=== PATIENT | female | born 1985 | race Caucasian/White ===

== ENCOUNTER 2016-04-15 19:24 | Emergency (ER) | payer BC, OTHER ==
[~2016-04-15 19:24] MED LIST: ALBUTEROL HFA60 DOSE IN; ALBUTEROL SUL0.083 % IN; FLOVENT HFA110 MCG IN; OMEPRAZOLE40 MG PO; PREDNISONE10 MG PO; PREDNISONE5 MG PO; SEREVENT DISKU50 MCG INH; [UNRECOGNIZED DRUG - OTHER] PO
--- NOTE | 2016-04-15 21:31 | ED ORDER SUMMARY ---
..... Patient: HARLAN HOLDER OrderSheet [facility] VisitID: [id number] [address] [place] [address] 31y, F Registration Date/Time: 04/15/2016 ORDER SHEET Weight: 63.5 kg (stated) Allergies: Clarithromycin, Erythromycin, Tramadol GENERAL ORDERS: Chest 2V Urgent (20:06 04/15/2016 HBivens A.R.N.P.) (Ack 20:18 CHategekimana) (20:19 RFay) MEDICATION ORDERS: Ceftriaxone IM 1 gm (NOW) (21:29 04/15/2016 HBivens A.R.N.P.) (21:56 EInderbitzen R.N.) Naproxen PO 500 mg (NOW) (22:03 04/15/2016 EInderbitzen R.N. verbal order read back to HBivens A.R.N.P.) (22:04 EInderbitzen R.N.) IV FLUIDS: ORDER SHEET NOTES: [Electronically signed by Kimmy Joseph R.N. (22:20 04/15/2016)] [Electronically signed by Fior Dove A.R.N.P. (22:40 04/15/2016)] [Electronically locked/signed by Kimmy Joseph R.N. (22:20 04/15/2016)]
--- NOTE | 2016-04-15 21:31 | ED ORDER SUMMARY ---
..... Patient: HARLAN HOLDER OrderSheet [facility] VisitID: [id number] [address] [place] [address] 31y, F Registration Date/Time: 04/15/2016 ORDER SHEET Weight: 63.5 kg (stated) Allergies: Clarithromycin, Erythromycin, Tramadol GENERAL ORDERS: Chest 2V Urgent (20:06 04/15/2016 HBivens A.R.N.P.) (Ack 20:18 CHategekimana) (20:19 RFay) MEDICATION ORDERS: Ceftriaxone IM 1 gm (NOW) (21:29 04/15/2016 HBivens A.R.N.P.) (21:56 EInderbitzen R.N.) Naproxen PO 500 mg (NOW) (22:03 04/15/2016 EInderbitzen R.N. verbal order read back to HBivens A.R.N.P.) (22:04 EInderbitzen R.N.) IV FLUIDS: ORDER SHEET NOTES: [Electronically signed by Kimmy Joseph R.N. (22:20 04/15/2016)] [Electronically signed by Fior Dove A.R.N.P. (22:40 04/15/2016)] [Electronically locked/signed by Kimmy Joseph R.N. (22:20 04/15/2016)]
--- NOTE | 2016-04-15 21:31 | ED NURSING NOTES ---
Clinical Report - Nurses [facility] [address] [place] [address] 04/15/2016 19:23 Patient: HARLAN HOLDER TRIAGE Triage time 19:54 Apr 15 2016. Acuity: LEVEL 4. Chief Complaint: (left rib pain). SEPSIS SCREEN: Sepsis Screen: negative. Negative (no infection suspected/documented). RANDALL COMA SCORE: Randall Coma Scale: 15- eyes open spontaneously (4); best verbal response- oriented x 4 (5); best motor response- obeys commands (6). --20:02 Willow Ellis R.N. 19:54 04/15/16. BP: 123/78. HR: 86. RR: 18. O2 saturation: 98%. Temp: 98.6 F. Pain level now: 10. --20:02 Willow Ellis R.N. Weight: 63.5 kg stated. Height/Length: 62 inches Per Patient. BMI: 25.6. --19:54 Willow Ellis R.N. Medications Serevent Diskus Inhalation. --19:57 Willow Ellis R.N. ProAir HFA Inhalation. --19:57 Willow Ellis R.N. Albuterol Sulfate Inhalation. --19:57 Willow Ellis R.N. Flovent Diskus Inhalation. --19:57 Willow Ellis R.N. Flonase Nasal. --19:57 Willow Ellis R.N. Singulair Oral. --19:57 Willow Ellis R.N. ZyrTEC Allergy Oral. --19:58 Willow Ellis R.N. Medication/allergy information source: the patient. --20:02 Inderbitzen, Willow, R.N. Allergies Clarithromycin. --19:56 Willow Ellis R.N. Erythromycin. --19:56 Willow Ellis R.N. Tramadol. --19:56 Willow Ellis R.N. History Arrived by private vehicle. Historian: patient. This started just prior to arrival. ( States has been coughing for a few weeks, tonight she felt severe pain following a sharp cough, Came here for treatment). No fever, weakness, cough, difficulty breathing or skin rash. Denies muscle aches. 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 PAST MEDICAL HX: Last normal menstrual period- Apr 05. 7. Para 7. Has not received seasonal influenza immunization. SOCIAL HX: Never smoker. Occasional alcohol use. No drug use. No infectious disease exposure. ABUSE ASSESSMENT: No report of abuse. SELF HARM ASSESSMENT: A self harm assessment was performed. The patient answered "no" to the question "Have you recently felt down, depressed, or hopeless?", "Have you noticed less interest or pleasure in doing things?", "Do you have thoughts of harming or killing yourself?", "Are you here because you tried to hurt yourself?", "Have you ever tried to hurt yourself before today?", "Have you recently had thoughts about harming or killing others?" and "Do you have any dangerous items in your possession?". FALL RISK ASSESSMENT: Fall risk assessment completed. No fall risk identified. NUTRITIONAL RISK ASSESSMENT: The nutritional risk assessment revealed no deficiencies. FUNCTIONAL ASSESSMENT: Functional assessment: no impairments noted. LEARNING NEEDS ASSESSMENT: The learning needs assessment revealed no barriers. SKIN INTEGRITY ASSESSMENT: Skin integrity risk assessment completed. No skin integrity risk identified. --20:02 Willow Ellis R.N. PROBLEMS: Asthma. Allergies. --19:59 Willow Ellis R.N. ADDITIONAL SURGERIES: Adenoidectomy. Myringotomy tubes. Tonsillectomy. Umbilical Hernia Repair. --19:59 Willow Ellis R.N. Interventions ID band on patient. --20:02 Willow Ellis R.N. NURSING PROGRESS NOTES 21:55 04/15/2016 Ceftriaxone IM 1 gm given. Given in the right gluteus dominik. Allergies verified and confirmed 5 rights. --21:56 Willow Ellis R.N. 21:55 04/15/2016 Naproxen PO Tablets 500 mg given. Allergies verified and confirmed 5 rights. --22:04 Willow Ellis R.N. 22:14 04/15/2016 Ceftriaxone IM Response: no adverse reaction. --22:19 Kimmy Joseph R.N. 22:19 04/15/2016 Naproxen PO Response: no adverse reaction. --22:20 Kimmy Joseph R.N. DISPOSITION / DISCHARGE Departure time: 2219 PM. Condition at departure: improved and stable. The goals identified in the patient's plan of care were met. No learning barriers present. Reviewed medication(s) side effects, precautions, dosing and course information. Prescription(s) given to the patient. Patient verbalized understanding. Written instructions provided in Austrian. The patient was discharged by the nurse practitioner. She was discharged home and unaccompanied at time of discharge. She left the Emergency Department ambulatory and via private vehicle. Patient driving. FALL RISK ASSESSMENT: Fall risk assessment completed. No fall risk identified. RANDALL COMA SCORE: Randall Coma Scale: 15- eyes open spontaneously (4); best verbal response- oriented x 4 (5); best motor response- obeys commands (6). --22:19 Kimmy Joseph R.N. 22:17 04/15/16. BP: 116/72 (regular adult cuff) taken on the left arm, via an automated monitor, while sitting. HR: 97. RR: 16 (regular and unlabored). O2 saturation: 97% on room air. Temp: 97.2 F (oral). Pain level now: 0/10. --22:19 Kimmy Joseph R.N. Locked/Released at 04/15/2016 22:20 by Kimmy Joseph R.N.
--- NOTE | 2016-04-15 21:31 | ED NURSING NOTES ---
Clinical Report - Nurses [facility] [address] [place] [address] 04/15/2016 19:23 Patient: HARLAN HOLDER TRIAGE Triage time 19:54 Apr 15 2016. Acuity: LEVEL 4. Chief Complaint: (left rib pain). SEPSIS SCREEN: Sepsis Screen: negative. Negative (no infection suspected/documented). RANDALL COMA SCORE: Randall Coma Scale: 15- eyes open spontaneously (4); best verbal response- oriented x 4 (5); best motor response- obeys commands (6). --20:02 Willow Ellis R.N. 19:54 04/15/16. BP: 123/78. HR: 86. RR: 18. O2 saturation: 98%. Temp: 98.6 F. Pain level now: 10. --20:02 Willow Ellis R.N. Weight: 63.5 kg stated. Height/Length: 62 inches Per Patient. BMI: 25.6. --19:54 Willow Ellis R.N. Medications Serevent Diskus Inhalation. --19:57 Willow Ellis R.N. ProAir HFA Inhalation. --19:57 Willow Ellis R.N. Albuterol Sulfate Inhalation. --19:57 Willow Ellis R.N. Flovent Diskus Inhalation. --19:57 Willow Ellis R.N. Flonase Nasal. --19:57 Willow Ellis R.N. Singulair Oral. --19:57 Willow Ellis R.N. ZyrTEC Allergy Oral. --19:58 Willow Ellis R.N. Medication/allergy information source: the patient. --20:02 Inderbitzen, Willow, R.N. Allergies Clarithromycin. --19:56 Willow Ellis R.N. Erythromycin. --19:56 Willow Ellis R.N. Tramadol. --19:56 Willow Ellis R.N. History Arrived by private vehicle. Historian: patient. This started just prior to arrival. ( States has been coughing for a few weeks, tonight she felt severe pain following a sharp cough, Came here for treatment). No fever, weakness, cough, difficulty breathing or skin rash. Denies muscle aches. 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 PAST MEDICAL HX: Last normal menstrual period- Apr 05. 7. Para 7. Has not received seasonal influenza immunization. SOCIAL HX: Never smoker. Occasional alcohol use. No drug use. No infectious disease exposure. ABUSE ASSESSMENT: No report of abuse. SELF HARM ASSESSMENT: A self harm assessment was performed. The patient answered "no" to the question "Have you recently felt down, depressed, or hopeless?", "Have you noticed less interest or pleasure in doing things?", "Do you have thoughts of harming or killing yourself?", "Are you here because you tried to hurt yourself?", "Have you ever tried to hurt yourself before today?", "Have you recently had thoughts about harming or killing others?" and "Do you have any dangerous items in your possession?". FALL RISK ASSESSMENT: Fall risk assessment completed. No fall risk identified. NUTRITIONAL RISK ASSESSMENT: The nutritional risk assessment revealed no deficiencies. FUNCTIONAL ASSESSMENT: Functional assessment: no impairments noted. LEARNING NEEDS ASSESSMENT: The learning needs assessment revealed no barriers. SKIN INTEGRITY ASSESSMENT: Skin integrity risk assessment completed. No skin integrity risk identified. --20:02 Willow Ellis R.N. PROBLEMS: Asthma. Allergies. --19:59 Willow Ellis R.N. ADDITIONAL SURGERIES: Adenoidectomy. Myringotomy tubes. Tonsillectomy. Umbilical Hernia Repair. --19:59 Willow Ellis R.N. Interventions ID band on patient. --20:02 Willow Ellis R.N. NURSING PROGRESS NOTES 21:55 04/15/2016 Ceftriaxone IM 1 gm given. Given in the right gluteus dominik. Allergies verified and confirmed 5 rights. --21:56 Willow Ellis R.N. 21:55 04/15/2016 Naproxen PO Tablets 500 mg given. Allergies verified and confirmed 5 rights. --22:04 Willow Ellis R.N. 22:14 04/15/2016 Ceftriaxone IM Response: no adverse reaction. --22:19 Kimmy Joseph R.N. 22:19 04/15/2016 Naproxen PO Response: no adverse reaction. --22:20 Kimmy Joseph R.N. DISPOSITION / DISCHARGE Departure time: 2219 PM. Condition at departure: improved and stable. The goals identified in the patient's plan of care were met. No learning barriers present. Reviewed medication(s) side effects, precautions, dosing and course information. Prescription(s) given to the patient. Patient verbalized understanding. Written instructions provided in Ethiopian. The patient was discharged by the nurse practitioner. She was discharged home and unaccompanied at time of discharge. She left the Emergency Department ambulatory and via private vehicle. Patient driving. FALL RISK ASSESSMENT: Fall risk assessment completed. No fall risk identified. RANDALL COMA SCORE: Randall Coma Scale: 15- eyes open spontaneously (4); best verbal response- oriented x 4 (5); best motor response- obeys commands (6). --22:19 Kimmy Joseph R.N. 22:17 04/15/16. BP: 116/72 (regular adult cuff) taken on the left arm, via an automated monitor, while sitting. HR: 97. RR: 16 (regular and unlabored). O2 saturation: 97% on room air. Temp: 97.2 F (oral). Pain level now: 0/10. --22:19 Kimmy Joseph R.N. Locked/Released at 04/15/2016 22:20 by Kimmy Joseph R.N.
--- NOTE | 2016-04-15 21:31 | ED CLINICAL REPORT ---
Clinical Report - Physicians/Mid Levels [facility] [address] [place] [address] 04/15/2016 19:23 Patient: HARLAN HOLDER Time Seen: 1955; initial patient contact, initial documentation, patient care assumed. Arrived- By private vehicle. Historian- patient. HISTORY OF PRESENT ILLNESS Chief Complaint: COUGH. This started about 2 - 3 weeks ago and is still present. The illness is described as moderate. The patient has had a cough. No sputum production, difficulty breathing, fever, muscle aches or sore throat. No nasal congestion or discharge, sinus pressure, sinus drainage or ear pain. The patient has had moderate chest discomfort (sharp). Additional history - No known contact with a sick individual. Similar symptoms previously: Frequently, as bad. ( with asthma). Recent medical care: Not recently seen/assessed. REVIEW OF SYSTEMS All systems otherwise negative, except as recorded above. PAST HISTORY See nurses notes. PROBLEMS: Asthma. Allergies. --19:59 Willow Ellis R.N. ADDITIONAL SURGERIES: Adenoidectomy. Myringotomy tubes. Tonsillectomy. Umbilical Hernia Repair. --19:59 Willow Ellis R.N. SOCIAL HISTORY Never smoker. Occasional alcohol use. Not exposed to second-hand smoke at home. No drug use. No recent travel. Is a local resident. FAMILY HISTORY Negative. ADDITIONAL NOTES The nursing notes have been reviewed with agreement regarding the chief complaint, HPI, ROS, PMH and patient medications and allergies. PHYSICAL EXAM Vital Signs: 04/15/2016 19:54 BP: 123/78. HR: 86. RR: 18. O2 saturation: 98%. Temp: 98.6 F. Pain level now: 5/10. Have been reviewed as normal and appear to be correct. Appearance: Alert. No acute distress. Eyes: Pupils equal, round and reactive to light. Eyes normal inspection. ENT: Ears normal. Nose normal. Pharynx normal. Uvula midline. Neck: Normal inspection. Neck supple. CVS: Normal heart rate and rhythm. Heart sounds normal. Pulses normal. Respiratory: No respiratory distress. Breath sounds abnormal. Mild rales present in the bases bilaterally. Abdomen: Soft and nontender. No organomegaly. Back: Normal inspection. Skin: Skin warm and dry. Normal skin color. No rash. Normal skin turgor. Extremities: Extremities exhibit normal ROM. No lower extremity edema. Neuro: Oriented X 3. No motor deficit. No sensory deficit. LABS, X-RAYS, AND EKG Chest X-ray: Infiltrate in the right middle lobe. Normal Chest X-Ray. (reviewed by dr roberts). The X-rays were interpreted contemporaneously by me. PROGRESS AND PROCEDURES Patient counseled in person regarding the patient's stable condition, test results and diagnosis. 2124. Disposition: Discharged home in good and improved condition (21:31). Condition: good and stable. CLINICAL IMPRESSION Bacterial pneumonia. Vital signs recorded and reviewed; empiric antibiotics given in the ED and prescribed. No hypoxemia, respiratory failure or sepsis. Chest wall pain INSTRUCTIONS Do not work today, for two days. Warnings: GENERAL WARNINGS: Return or contact your physician immediately if your condition worsens or changes unexpectedly, if not improving as expected, or if other problems arise. Specifically return if problem worsens. Prescription Medications: Albuterol HFA oral inhaler: inhale 1 to 2 puffs every four to six hours as needed for difficulty breathing. Dispense one (1) unit. No refills. Levaquin 500 mg: take 1 tab orally every day for 7 days. No refills. Follow-up: Follow up with your doctor in about three days even if well. Call for an appointment. Summary of care provided to patient. Understanding of the discharge instructions verbalized by patient. (Electronically signed by Fior Dove A.R.N.P. 04/15/2016 22:40)
--- NOTE | 2016-04-15 21:53 | DIAGNOSTIC IMAGING REPORT ---
PROCEDURE: XR CHEST 2 VIEW INDICATION: COUGH, initial encounter TECHNIQUE: PA and lateral view. COMPARISON: None. FINDINGS: Small right mid lung infiltrate. Small focal apical opacity. Cardiovascular structures are normal. Bony thorax is unremarkable. IMPRESSION: 1. Small right mid lung infiltrate suggestive of pneumonia 2. 1.2 cm focal right apical opacity, infiltrate versus nodule. Recommend follow-up chest x-ray in 3 weeks. If finding persists, CT scan should be obtained.
--- NOTE | 2016-04-15 22:41 | ED MAR SUMMARY ---
..... Medication Administration Record [facility] [address] [place] [address] Patient: HARLAN HOLDER Visit ID: [id number] 31y, F Weight: 63.5 kg Height/Length: 62 in BMI: 25.6 ALLERGIES: Tramadol, Erythromycin, Clarithromycin Given 04/15/2016 Willow Ellis R.N. Medication Administered: CEFTRIAXONE [IM], Dose: 1 gm IM. Medication Ordered: Ceftriaxone IM 1 gm (NOW). Given :04/15/2016 Willow Ellis R.N. Medication Administered: NAPROXEN [PO], Dose: 500 mg Tablets PO. Medication Ordered: Naproxen PO 500 mg (NOW).
--- NOTE | 2016-04-15 22:41 | ED MED RECONCILIATION SUMMARY ---
Patient: HARLAN HOLDER Medication Reconciliation Report [facility] VisitID: [id number] [address] [place] [address] 31y, F Registration Date/Time: 04/15/2016 Weight: 63.5 kg Height/Length: 62 in. BMI: 25.6 ALLERGIES: Clarithromycin, Erythromycin, Tramadol The patient's Home Medications are listed below: THE FOLLOWING MEDICATIONS NEED TO BE RECONCILED: Albuterol Sulfate Inhalation Flonase Nasal Flovent Diskus Inhalation ProAir HFA Inhalation Serevent Diskus Inhalation Singulair Oral ZyrTEC Allergy Oral The source(s) of the original Home Medication information: patient The following Medications were given to the patient in the Emergency Department: Ceftriaxone [IM] IM 1 gm, administered: 04/15/2016 9:55:00 PM Naproxen [PO] PO 500 mg, administered: 04/15/2016 9:55:00 PM The following Medications were prescribed to the patient: Albuterol HFA oral inhaler: inhale 1 to 2 puffs every four to six hours as needed for difficulty breathing. Dispense one (1) unit. No refills. -- Fior Dove A.R.N.P. Levaquin 500 mg: take 1 tab orally every day for 7 days. No refills. -- Fior Dove A.R.N.P.
--- NOTE | 2016-04-15 22:41 | ED MED RECONCILIATION SUMMARY ---
Patient: HARLAN HOLDER Medication Reconciliation Report [facility] VisitID: [id number] [address] [place] [address] 31y, F Registration Date/Time: 04/15/2016 Weight: 63.5 kg Height/Length: 62 in. BMI: 25.6 ALLERGIES: Clarithromycin, Erythromycin, Tramadol The patient's Home Medications are listed below: THE FOLLOWING MEDICATIONS NEED TO BE RECONCILED: Albuterol Sulfate Inhalation Flonase Nasal Flovent Diskus Inhalation ProAir HFA Inhalation Serevent Diskus Inhalation Singulair Oral ZyrTEC Allergy Oral The source(s) of the original Home Medication information: patient The following Medications were given to the patient in the Emergency Department: Ceftriaxone [IM] IM 1 gm, administered: 04/15/2016 9:55:00 PM Naproxen [PO] PO 500 mg, administered: 04/15/2016 9:55:00 PM The following Medications were prescribed to the patient: Albuterol HFA oral inhaler: inhale 1 to 2 puffs every four to six hours as needed for difficulty breathing. Dispense one (1) unit. No refills. -- Fior Dove A.R.N.P. Levaquin 500 mg: take 1 tab orally every day for 7 days. No refills. -- Fior Dove A.R.N.P.
--- NOTE | 2016-04-15 22:41 | ED MAR SUMMARY ---
..... Medication Administration Record [facility] [address] [place] [address] Patient: HARLAN HOLDER Visit ID: [id number] 31y, F Weight: 63.5 kg Height/Length: 62 in BMI: 25.6 ALLERGIES: Tramadol, Erythromycin, Clarithromycin Given 04/15/2016 Willow Ellis R.N. Medication Administered: CEFTRIAXONE [IM], Dose: 1 gm IM. Medication Ordered: Ceftriaxone IM 1 gm (NOW). Given :04/15/2016 Willow Ellis R.N. Medication Administered: NAPROXEN [PO], Dose: 500 mg Tablets PO. Medication Ordered: Naproxen PO 500 mg (NOW).
--- NOTE | 2016-04-15 22:41 | ED DISCHARGE INSTRUCTIONS ---
Patient: HARLAN HOLDER General Instructions [facility] VisitID: [id number] [place] [address] 31y, F Registration Date/Time: 04/15/2016 Bacterial pneumonia. Vital signs recorded and reviewed; empiric antibiotics given in the ED and prescribed. No hypoxemia, respiratory failure or sepsis. Chest wall pain INSTRUCTIONS Do not work today, for two days. Warnings: GENERAL WARNINGS: Return or contact your physician immediately if your condition worsens or changes unexpectedly, if not improving as expected, or if other problems arise. Specifically return if problem worsens. Prescription Medications: Albuterol HFA oral inhaler: inhale 1 to 2 puffs every four to six hours as needed for difficulty breathing. Dispense one (1) unit. No refills. Levaquin 500 mg: take 1 tab orally every day for 7 days. No refills. Follow-up: Follow up with your doctor in about three days even if well. Call for an appointment. Summary of care provided to patient. Understanding of the discharge instructions verbalized by patient. ADDITIONAL INFORMATION Pneumonia (Adult) Pneumonia is an infection deep within the lung, in the small air sacs (alveoli). It may be due to a virus or bacteria and is usually treated with an antibiotic. Severe cases require treatment in the hospital. Milder cases can be treated at home. Symptoms usually start to improve during the first2 days of treatment. Home Care: Rest at home for the first 23 days or until you feel stronger. When resuming activity, dont let yourself become overly tired. Avoid exposure to cigarette smoke (yours or others). You may use acetaminophen (Tylenol) or ibuprofen (Motrin, Advil) to control fever or pain, unless another medicine was prescribed. [NOTE: If you have chronic liver or kidney disease or ever had a stomach ulcer or GI bleeding, talk with your doctor before using these medicines.] (Aspirin should never be used in anyone under 18 years of age who is ill with a fever. It may cause severe liver damage.) Your appetite may be poor so a light diet is fine. Keep well hydrated by drinking 68 glasses of fluids per day (water, sport drinks such as Gatorade, sodas without caffeine, juices, tea, soup, etc.). This will help loosen secretions in the lung, making it easier for you to cough up the phlegm (sputum). If you also have heart or kidney disease, check with your doctor before you drink extra amounts of fluids. Finish all antibiotic medicine prescribed, even if you are feeling better after a few days. Follow Up with your doctor in the next 23 days (or as advised) to be sure you are responding properly to the medicine. [NOTE: If you are age 65 or older, or if you have chronic lung disease (asthma, emphysema or COPD), we recommendthe pneumococcal vaccination and a yearlyinfluenzavaccination(flu-shot) every . Ask your doctor about this.] Get Prompt Medical Attention if any of the following occur: Not getting better within the first 48 hours of treatment Increasing shortness of breath or rapid breathing (over 25 breaths/minute) Coughing up blood or increasing chest pain with breathing Fever of 100.4F (38C) oral or higher, not better with fever medication Increasing weakness, dizziness or fainting Increasing thirst or dry mouth Sinus pain, headache or a stiff neck Chest pain not caused by coughing Chest Wall Pain: Costochondritis The chest pain that you have had today is caused by Costochondritis. This condition is due to an inflammation of the cartilage joining the ribs to the breastbone. It is not caused by heart or lung problems. Although the exact cause for costochondritis is not known, it often occurs during times of emotional stress. It can be painful, but it is not dangerous. It usually disappears within one to two weeks, but may recur. Rarely, a more serious condition may cause symptoms similar to costochondritis; therefore, watch for the warning signs listed below. Home Care: If you feel that emotional stress is a cause of your condition, try to identify sources of that stress. It may not be obvious! Learn ways to deal with the stress in your life such as regular exercise, muscle relaxation, meditation, or simply taking time out for yourself. For more information about this, consult your doctor or go to a local bookstore and review books and tapes available on the subject of stress reduction. You may use acetaminophen (Tylenol) or ibuprofen (Motrin, Advil) to control pain, unless another pain medicine was prescribed. [ NOTE: If you have liver disease or ever had a stomach ulcer, talk with your doctor before using these medicines.] The use of heat (hot wet compress or heating pad) with or without local analgesic creams (Deep Heat Rub, Ferdinand Gil) will be helpful to reduce pain. Follow Up with your doctor as directed or sooner if you do not start to improve within the next two days. Get Prompt Medical Attention if any of the following occur: A change in the type of pain: if it feels different, becomes more severe, lasts longer, or spreads into your shoulder, arm, neck, jaw or back Shortness of breath or increased pain with breathing Weakness, dizziness, or fainting Cough with dark colored sputum (phlegm) or blood Abdominal pain Dark red or black stools Fever of 100.4F (38C) or higher, or as directed by your healthcare provider Albuterol Sulfate Pressurized inhalation, suspension What is this medicine? ALBUTEROL (al BYOO ter ole) is a bronchodilator. It helps open up the airways in your lungs to make it easier to breathe. This medicine is used to treat and to prevent bronchospasm. How should I use this medicine? This medicine is for inhalation through the mouth. Follow the directions on your prescription label. Take your medicine at regular intervals. Do not use more often than directed. Make sure that you are using your inhaler correctly. Ask you doctor or health care provider if you have any questions. Talk to your stoner out regarding the use of this medicine in children. Special care may be needed. What side effects may I notice from receiving this medicine? Side effects that you should report to your doctor or health managed care liaison as soon as possible: allergic reactions like skin rash, itching or hives, swelling of the face, lips, or tongue breathing problems chest pain feeling faint or lightheaded, falls high blood pressure irregular heartbeat fever muscle cramps or weakness pain, tingling, numbness in the hands or feet vomiting Side effects that usually do not require medical attention (report to your doctor or health managed care liaison if they continue or are bothersome): cough difficulty sleeping headache nervousness or trembling stomach upset stuffy or runny nose throat irritation unusual taste What may interact with this medicine? anti-infectives like chloroquine and pentamidine caffeine cisapride diuretics medicines for colds medicines for depression or for emotional or psychotic conditions medicines for weight loss including some herbal products methadone some antibiotics like clarithromycin, erythromycin, levofloxacin, and linezolid some heart medicines steroid hormones like dexamethasone, cortisone, hydrocortisone theophylline thyroid hormones What if I miss a dose? If you miss a dose, use it as soon as you can. If it is almost time for your next dose, use only that dose. Do not use double or extra doses. Where should I keep my medicine? Keep out of the reach of children. Store at room temperature between 15 and 30 degrees C (59 and 86 degrees F). The contents are under pressure and may burst when exposed to heat or flame. Do not freeze. This medicine does not work as well if it is too cold. Throw away any unused medicine after the expiration date. Inhalers need to be thrown away after the labeled number of puffs have been used or by the expiration date; whichever comes first. Ventolin HFA should be thrown away 12 months after removing from foil pouch. Check the instructions that come with your medicine. What should I tell my health care provider before I take this medicine? They need to know if you have any of the following conditions: diabetes heart disease or irregular heartbeat high blood pressure pheochromocytoma seizures thyroid disease an unusual or allergic reaction to albuterol, levalbuterol, sulfites, other medicines, foods, dyes, or preservatives or trying to get breast-feeding What should I watch for while using this medicine? Tell your doctor or health managed care liaison if your symptoms do not improve. Do not use extra albuterol. If your asthma or bronchitis gets worse while you are using this medicine, call your doctor right away. If your mouth gets dry try chewing sugarless gum or sucking hard candy. Drink water as directed. Levofloxacin Oral tablet What is this medicine? LEVOFLOXACIN (dottie slater) is a quinolone antibiotic. It is used to treat certain kinds of bacterial infections. It will not work for colds, flu, or other viral infections. How should I use this medicine? Take this medicine by mouth with a full glass of water. Follow the directions on the prescription label. This medicine can be taken with or without food. Take your medicine at regular intervals. Do not take your medicine more often than directed. Do not skip doses or stop your medicine early even if you feel better. Do not stop taking except on your doctor's advice. A special MedGuide will be given to you by the pharmacist with each prescription and refill. Be sure to read this information carefully each time. Talk to your stoner out regarding the use of this medicine in children. While this drug may be prescribed for children as young as 6 months for selected conditions, precautions do apply. What side effects may I notice from receiving this medicine? Side effects that you should report to your doctor or health managed care liaison as soon as possible: -allergic reactions like skin rash or hives, swelling of the face, lips, or tongue -changes in vision -confusion, nightmares or hallucinations -difficulty breathing -irregular heartbeat, chest pain -joint, muscle or tendon pain -pain or difficulty passing urine -persistent headache with or without blurred vision -redness, blistering, peeling or loosening of the skin, including inside the mouth -seizures -unusual pain, numbness, tingling, or weakness -vaginal irritation, discharge Side effects that usually do not require medical attention (report to your doctor or health managed care liaison if they continue or are bothersome): -diarrhea -dry mouth -headache -stomach upset, nausea -trouble sleeping What may interact with this medicine? Do not take this medicine with any of the following medications: - arsenic trioxide - chloroquine - droperidol - medicines for irregular heart rhythm like amiodarone, disopyramide, dofetilide, flecainide, quinidine, procainamide, sotalol - some medicines for depression or mental problems like phenothiazines, pimozide, and ziprasidone This medicine may also interact with the following medications: - amoxapine -antacids - cisapride - dairy products - didanosine (ddI) buffered tablets or powder - haloperidol - multivitamins -NSAIDS, medicines for pain and inflammation, like ibuprofen or naproxen - retinoid products like tretinoin or isotretinoin - risperidone - some other antibiotics like clarithromycin or erythromycin - sucralfate - theophylline - warfarin What if I miss a dose? If you miss a dose, take it as soon as you remember. If it is almost time for your next dose, take only that dose. Do not take double or extra doses. Where should I keep my medicine? Keep out of the reach of children. Store at room temperature between 15 and 30 degrees C (59 and 86 degrees F). Keep in a tightly closed container. Throw away any unused medicine after the expiration date. What should I tell my health care provider before I take this medicine? They need to know if you have any of these conditions: cerebral disease irregular heartbeat kidney disease seizure disorder an unusual or allergic reaction to levofloxacin, other antibiotics or medicines, foods, dyes, or preservatives or trying to get breast-feeding What should I watch for while using this medicine? Tell your doctor or health managed care liaison if your symptoms do not improve or if they get worse. Drink several glasses of water a day and cut down on drinks that contain caffeine. You must not get dehydrated while taking this medicine. You may get drowsy or dizzy. Do not drive, use machinery, or do anything that needs mental alertness until you know how this medicine affects you. Do not sit or stand up quickly, especially if you are an older patient. This reduces the risk of dizzy or fainting spells. This medicine can make you more sensitive to the sun. Keep out of the sun. If you cannot avoid being in the sun, wear protective clothing and use a sunscreen. Do not use sun lamps or tanning beds/booths. Contact your doctor if you get a sunburn. If you are a diabetic monitor your blood glucose carefully. If you get an unusual reading stop taking this medicine and call your doctor right away. Do not treat diarrhea with [id number] products. Contact your doctor if you have diarrhea that lasts more than 2 days or if the diarrhea is severe and watery. Avoid antacids, calcium, iron, and zinc products for 2 hours before and 2 hours after taking a dose of this medicine. You have been given the following additional information: Pneumonia (Adult) Chest Wall Pain, Costochondritis Albuterol Sulfate Pressurized inhalation, suspension Levofloxacin Oral tablet Do not work today, for two days. (Electronically signed by Fior Dove A.R.N.P. 04/15/2016 22:40)
== END 2016-04-15 22:19 | disposition home or self-care (01) ==
LOC: ED SRH 19:24
DX: J15.9 Unspecified bacterial pneumonia (principal); Z79.51 Long term (current) use of inhaled steroids; Z79.899 Other long term (current) drug therapy; Z88.1 Allergy status to other antibiotic agents; Z88.5 Allergy status to narcotic agent

== ENCOUNTER 2016-05-08 11:55 | Outpatient (CLI) | payer BC, OTHER ==
--- NOTE | 2016-05-08 12:53 | DIAGNOSTIC IMAGING REPORT ---
PROCEDURE: CT THORAX WITHOUT CONTRAST INDICATION: LUNG NODULE, ASTHMA TECHNIQUE: Noncontrast axial images were obtained of the chest with coronal and sagittal reformations. COMPARISON: Plain films 04/15/2016 FINDINGS: The thyroid gland is normal. Thoracic aorta is normal caliber without atherosclerotic calcification. The great vessels demonstrates normal branching pattern. The central pulmonary arteries are normal caliber. Heart size is normal. No pericardial effusion. No adenopathy or mediastinal masses. Normal thymic tissue is present. The esophagus is normal in caliber without hiatal hernia. In the apical segment of the right upper lobe, there is a wispy patch of residual pneumonitis which likely corresponds to the nodule seen on plain film. This has decreased in prominence compared to the chest x-ray. A tiny subpleural ground-glass nodules also seen at the right lung apex measuring less than 5 mm. There is faint, hazy alveolar opacity involving the superior segment of the right lower lobe and superior segment of left lower lobe corresponding plain film findings. Mild peribronchial thickening is present centrally in the right middle lobe and superior segment left lower lobe. No dense consolidations or pleural effusions. No suspicious nodules or solid parenchymal masses. The airway is patent and branches normally. No pneumothorax. Osseous structures are intact. The images obtained of the upper abdomen are normal. IMPRESSION: 1. Resolving patchy opacity in the right upper lobe, likely infectious/inflammatory change. 2. Persistent, but resolving mild alveolar opacities in the superior segment bilateral lower lobes, appearance most suggestive of infectious/inflammatory process. 3. Mild peribronchial thickening, likely bronchitis or thickening secondary to asthma. 4. No evidence of effusion, suspicious solid nodule, or pathologic adenopathy.
== END 2016-05-08 23:00 ==
LOC: CT SRH 11:55
DX: R91.8 Other nonspecific abnormal finding of lung field (principal)